=== PATIENT | female | born 1995 | race Caucasian/White ===

== ENCOUNTER 2016-05-30 09:36 | Emergency (ER) | payer BC ==
[~2016-05-30] VITALS: Wt 60.0 kg
[~2016-05-30 09:36] MED LIST: CYCL-319 PO; NAPR-260 PO
[2016-05-30] MEDS ORDERED: HC20CR25 TOP (10:17)
[2016-05-30] MEDS ORDERED: NIZ30CR2 TOP (10:17)
[2016-05-30] MEDS ORDERED: CETI-240 PO (10:17)
--- NOTE | 2016-05-30 10:19 | ERD ---
ER Documentation Chief Complaint Date/Time DATE: 05/30/16 TIME: 10:17 Chief Complaint RASH INTERMITTENT FOR 2 WKS. NOT BETTER NO SOB HPI This 21-year-old female presents with a two-week history of a rash on her abdomen and slightly on her back. It is slightly itchy. She denies any fevers , vomiting, shortness breath or chest pain. ROS All systems reviewed and are negative except as per history of present illness. Medications Home Meds Active Scripts Cetirizine Hcl* (Cetirizine Hcl*) 10 Mg Tablet, 10 MG PO DAILY, #15 TAB Prov:NEAL BARROS MD 05/30/16 Hydrocortisone* Topical (Hydrocortisone* Topical) 2.5%-20 Gm Cream..g., 1 APPLIC TOP BID for 7 Days, TUB Prov:NEAL BARROS MD 05/30/16 Ketoconazole* (Nizoral*) 2%-30 Gm Cream..g., 1 APPLIC TOP BID for 10 Days, TUB Prov:NEAL BARROS MD 05/30/16 Cyclobenzaprine Hcl* (Cyclobenzaprine Hcl*) 10 Mg Tablet, 10 MG PO TID, #15 TAB Prov:IVANIA MCCLURE MD 02/03/16 Naproxen* (Naprosyn*) 500 Mg Tablet, 500 MG PO BID Y for PAIN AND/OR INFLAMMATION, #30 TAB Prov:IVANIA MCCLURE MD 02/03/16 Allergies Allergies: Coded Allergies: No Known Allergy (Unverified , 06/07/14) PMhx/Soc History of Surgery: Yes (right hip) Anesthesia Reaction: No Hx Neurological Disorder: No Hx Respiratory Disorders: No Hx Cardiac Disorders: No Hx Psychiatric Problems: No Hx Miscellaneous Medical Probl: No Hx Alcohol Use: No Hx Substance Use: No Hx Tobacco Use: No Physical Exam Vitals Vital Signs Date Time Temp Pulse Resp B/P Pulse Ox O2 Delivery O2 Flow Rate FiO2 05/30/16 09:49 98.0 84 20 135/78 99 Physical Exam Const: [] Alert, [id number] per Head: Atraumatic Eyes: Normal Conjunctiva ENT: Normal External Ears, Nose and Mouth. Neck: Full range of motion..~ No meningismus. Resp: Clear to auscultation bilaterally Cardio: Regular rate and rhythm, no murmurs Abd: Soft, non tender, non distended. Normal bowel sounds Skin: No petechiae or purpura . There is a scattered slightly erythematous rash with plaque type lesions on the abdomen and back. There is a large lesion on the right upper abdomen. There is no warmth, induration, streaking or vesicles per Back: No midline or flank tenderness Ext: No cyanosis, or edema Neur: Awake and alert Psych: Normal Mood and Affect Procedures/MDM This patient presents with a 2 week history of rash consistent with pityriasis rosea. There is no evidence of life-threatening rashes, or emergent contagious diseases. She will be treated with Nizoral, hydrocortisone and Zyrtec. Patient was advised rash on average may last 2 months. The patient was stable with no new complaints during the ER course. Clinically, there is no current evidence to suggest meningitis, sepsis, acute abdomen, pneumonia, acute coronary syndrome, pulmonary embolism, or any other emergent condition appearing to require further evaluation or hospitalization. The patient should certainly return for any new or worsening symptoms per the aftercare instructions. They should otherwise follow-up with her primary care doctor for reevaluation this week. Departure Diagnosis: Primary Impression: Pityriasis Condition: Stable Patient Instructions: Pityriasis Rosea Additional Instructions: Likely viral rash may last 2 months on average. Recheck for new or worsening symptoms with primary care doctor. NEAL BARROS MD May 30, 2016 10:19
== END 2016-05-30 10:39 | disposition home or self-care (01) ==
LOC: FTE 09:36
DX: L42 Pityriasis rosea (principal)
CPT/HCPCS: 99283

== ENCOUNTER 2017-05-24 10:33 | Emergency (ER) | END 2017-05-24 14:32 | disposition home or self-care (01) ==

== ENCOUNTER 2018-06-28 07:44 | Emergency (ER) | payer BC ==
[~2018-06-28] VITALS: Ht 162.6 cm; Wt 68.4 kg
[~2018-06-28 07:44] MED LIST changes: +CETI10TA19 PO; -CYCL-319 PO; +CYCL10TA7 PO; +HC20CR25 TOP; +IBUP-1542 PO; -NAPR-260 PO; +NAPR-985 PO; +NIZ30CR2 TOP
[2018-06-28 07:48] VITALS: Ht 162.6 cm; Wt 68.4 kg
[2018-06-28] MEDS ORDERED: CIPROFLOXACIN 500 MG TAB PO ONE (09:30)
[2018-06-28] MEDS ORDERED: CEFTRIAXONE 1 GM/50 ML (PMX) 50 ML IVPB ONE (09:30)
[2018-06-28] MEDS ORDERED: MED4DP PO (13:32)
[2018-06-28] MEDS ORDERED: NAPR-985 PO (13:32)
[2018-06-28] MEDS ORDERED: CIPR500T4 PO (13:32)
[2018-06-28] MEDS ORDERED: HYDR-4011 PO (13:32)
[2018-06-28 13:41] VITALS: BP 131/81; PULSE 92; RESP 16
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
== END 2018-06-28 13:42 | disposition home or self-care (01) ==
LOC: FTE 07:44
DX: M54.5 Low back pain (principal)
CPT/HCPCS: 72158; 80053; 81001; 81025; 85025; J0696; Z7610; 36415; 96365